=== PATIENT | male | born 1945 | race Caucasian/White ===

== ENCOUNTER → 2016-11-23 | Outpatient (CLI) | payer MEDICARE ==
--- NOTE | 2016-11-23 13:06 | Diagnostic Imaging Report ---
INDICATION: Abdominal aortic aneurysm screening. TECHNIQUE: Abdominal aortic sonography is performed in a routine fashion. FINDINGS: There is no evidence of abdominal aortic aneurysm. Maximal aortic diameter at prostate was 3.1 cm. The visualized portions of the iliac origins are also nonaneurysmal. IMPRESSION: No evidence of abdominal aortic aneurysm. Dictated by: Dictated on workstation # [id number]
== END ==
LOC: RAD 08:27
PROVIDERS: ATTEND Family Medicine
DX: Z13.6 Encounter for screening for cardiovascular disorders (principal)